=== PATIENT | female | born 2000 | race Caucasian/White ===

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

== ENCOUNTER 2023-11-11 21:51 | Emergency (ER) | payer BC ==
--- NOTE | 2023-11-12 00:12 | EDPHYS ---
Physician Documentation [facility] Name: Maggie Alcaraz Age: 23 yrs Sex: Female : 2000 Arrival Date: 11/11/2023 Time: 21:51 Bed 13 Private MD: ED Physician Ulysses Saucedo HPI: 11/10 22:54 This 23 yrs old Female presents to ER via Ambulatory with complaints of Leg Pain. kb 22:54 Patient is a 23-year-old female who presents for pain to medial left thigh that started kb 1 week ago. Denies injury or trauma. Ambulates with steady gait.. Historical: - Allergies: 22:30 No Known Allergies; pf1 - PMHx: 22:30 PCOS; pf1 - PSHx: 22:30 pilonidal cyst removal; pf1 - Immunization history:: Adult Immunizations up to date, Client reports receiving the 1st dose of the Covid vaccine, Last tetanus immunization: < 5 years ago Flu vaccine is not up to date. - Infectious Disease History:: Denies. - Social history:: Smoking status: Patient denies any tobacco usage or history of. Patient uses alcohol, occasionally. Patient/guardian denies using street drugs. ROS: 22:54 Constitutional: As per HPI kb Exam: 22:54 Constitutional: This is a well developed, well nourished patient who is awake, alert, kb and in no acute distress. Head/Face: Normocephalic, atraumatic. ENT: Moist Mucous membranes Cardiovascular: Regular rate Respiratory: Respirations even and unlabored. No increased work of breathing. Talking in full sentences Skin: Warm, dry with normal turgor. Normal color. MS/ Extremity: Pulses equal, no cyanosis. Neurovascular intact. Full, normal range of motion. Neuro: Awake and alert, GCS 15, oriented to person, place, time, and situation. Moves all extremities. Normal gait. Vital Signs: 22:23 BP 151 / 91; Pulse 91; Resp 15; Temp 98; Pulse Ox 100% on R/A; Weight 117.93 kg; Height pf1 5 ft. 4 in. ; Pain 4/10; 23:51 BP 117 / 82; Pulse 101; Resp 16; Pulse Ox 100% on R/A; me1 11/11 00:20 BP 111 / 62; Pulse 94; Resp 16; Temp 97.9; Pulse Ox 99% on R/A; Pain 09/10; pf1 11/10 22:23 Body Mass Index 44.63 (117.93 kg, 162.56 cm) pf1 11/10 22:23 Pain Scale: Adult pf1 11/11 00:20 Pain Scale: Adult pf1 MDM: 11/10 21:58 Patient medically screened. kb 22:54 Differential diagnosis: Strain, DVT, contusion. Data reviewed: vital signs, nurses kb notes. Counseling: I had a detailed discussion with the patient and/or guardian regarding the historical points, exam findings, and any diagnostic results supporting the discharge/admit diagnosis, radiology results, the need for outpatient follow up, a family practitioner, to return to the emergency department if symptoms worsen or persist or if there are any questions or concerns that arise at home. 11/11 00:11 Historians other than the Patient: Parent: mother. kb 11/10 22:04 Order name: US Extremity Venous Unilateral Ltd kb Administered Medications: No medications were administered Disposition: 02:06 Co-signature as Attending Physician, Ulysses Saucedo MD I reviewed the patient's care rt provided by the Advanced Practice Provider and agree with the diagnosis and treatment plan. Disposition Summary: 11/12/23 00:12 Discharge Ordered Notes: Location: Home kb Condition: Stable kb Diagnosis - Pain in left leg kb Followup: kb - With: Emergency Department - When: As needed - Reason: Worsening of condition Followup: kb - With: Private Physician - When: 2 - 3 days - Reason: Recheck today's complaints, Continuance of care, Re-evaluation by your physician Discharge Instructions: - Discharge Summary Sheet kb - Musculoskeletal Pain kb - Muscle Strain, [id number] kb Forms: - Medication Reconciliation Form kb - Antibiotic Education kb - Prescription Opioid Use kb - Patient Portal Instructions kb - Leadership Thank You Letter kb Prescriptions: - Diclofenac Sodium 75 mg Oral tablet, delayed release (enteric coated) - take 1 tablet ORAL route 2 times per day As needed; 30 tablet; Refills: 0, kb Product Selection Permitted - orphenadrine citrate 100 mg Oral Tablet Sustained Release - take 1 tablet ORAL route 2 times per day As needed; 20 tablet; Refills: 0, kb Product Selection Permitted Signatures: Dispatcher [employer] Christie Gandhi FNP-C FNP-Ckb Ulysses Saucedo MD MD rt Brenda Tanner, RN RN pf1
--- NOTE | 2023-11-12 00:12 | ER ---
Nurse's Notes [facility] Name: Maggie Alacraz Age: 23 yrs Sex: Female : 2000 Arrival Date: 11/11/2023 Time: 21:51 Bed 13 Private MD: Diagnosis: Pain in left leg Presentation: 11/10 22:23 Chief complaint: Patient states: left upper inner thigh pain of 4,onset 9 days. Patient pf1 denies any injury. Patient stated does stand at work all day. Coronavirus screen: Vaccine status: Patient reports receiving the 1st dose of the Covid vaccine. Client denies travel out of the [place] in the last 14 days. At this time, the client does not indicate any symptoms associated with coronavirus-19. Ebola Screen: Patient negative for fever greater than or equal to 101.5 degrees Fahrenheit, and additional compatible Ebola Virus Disease symptoms. Initial Sepsis Screen: Does the patient meet any 2 criteria? HR > 90 bpm. No. Patient's initial sepsis screen is negative. Does the patient have a suspected source of infection? No. Patient's initial sepsis screen is negative. Risk Assessment: Do you want to hurt yourself or someone else? Patient reports no desire to harm self or others. Onset of symptoms was November 09, 2023. 22:23 Method Of Arrival: Ambulatory pf1 22:23 Acuity: SALEEM 3 pf1 Triage Assessment: 22:31 General: Appears in no apparent distress. comfortable, well groomed, well developed, pf1 Behavior is calm, cooperative, appropriate for age, quiet. Pain: Complains of pain in left leg. Musculoskeletal: Reports pain in left leg Pain is 4 out of 10 on a pain scale. Historical: - Allergies: 22:30 No Known Allergies; pf1 - PMHx: 22:30 PCOS; pf1 - PSHx: 22:30 pilonidal cyst removal; pf1 - Immunization history:: Adult Immunizations up to date, Client reports receiving the 1st dose of the Covid vaccine, Last tetanus immunization: < 5 years ago Flu vaccine is not up to date. - Infectious Disease History:: Denies. - Social history:: Smoking status: Patient denies any tobacco usage or history of. Patient uses alcohol, occasionally. Patient/guardian denies using street drugs. Screenin:53 [facility] ED Fall Risk Assessment (Adult) History of falling in the last 3 months, me1 including since admission No falls in past 3 months (0 pts) Confusion or Disorientation No (0 pts) Intoxicated or Sedated No (0 pts) Impaired Gait No (0 pts) Mobility Assist Device Used No (0 pt) Altered Elimination No (0 pt) Score/Fall Risk Level 0 - 2 = Low Risk Maintained a safe environment, Provided non-skid footwear, Hourly rounding (assess needs \T\ fall precautionary measures) done. Abuse screen: Denies threats or abuse. Nutritional screening: No deficits noted. Tuberculosis screening: No symptoms or risk factors identified. Assessment: 23:51 General: Appears uncomfortable, well groomed, well developed, well nourished, Behavior me1 is calm, cooperative, appropriate for age, Reports left upper inner thigh pain of 4,onset 9 days. Patient denies any injury. Patient stated does stand at work all day. Pain: Complains of pain in left leg Pain does not radiate. Pain currently is 4 out of 10 on a pain scale. Quality of pain is described as tender, Pain began 9 days ago Is continuous. Neuro: Level of Consciousness is awake, alert, obeys commands, Oriented to person, place, time, situation, Appropriate for age. Cardiovascular: Capillary refill < 3 seconds Patient's skin is warm and dry. Respiratory: Airway is patent Respiratory effort is even, unlabored, Respiratory pattern is regular, symmetrical. GI: No signs and/or symptoms were reported involving the gastrointestinal system. : No signs and/or symptoms were reported regarding the genitourinary system. EENT: No signs and/or symptoms were reported regarding the EENT system. Derm: Skin is intact, is healthy with good turgor, Skin is pink, warm \T\ dry. Musculoskeletal: Reports pain in left leg. 11/11 00:21 Reassessment: Patient appears in no apparent distress at this time. Patient and/or pf1 family updated on plan of care and expected duration. Pain level reassessed. Patient is alert, oriented x 3, equal unlabored respirations, skin warm/dry/pink. Patient states feeling better. Patient states symptoms have improved. Vital Signs: 11/10 22:23 BP 151 / 91; Pulse 91; Resp 15; Temp 98; Pulse Ox 100% on R/A; Weight 117.93 kg; Height pf1 5 ft. 4 in. ; Pain /; 23:51 BP 117 / 82; Pulse 101; Resp 16; Pulse Ox 100% on R/A; me1 11/11 00:20 BP 111 / 62; Pulse 94; Resp 16; Temp 97.9; Pulse Ox 99% on R/A; Pain 3/10; pf1 11/10 22:23 Body Mass Index 44.63 (117.93 kg, 162.56 cm) pf1 11/10 22:23 Pain Scale: Adult pf1 11/11 00:20 Pain Scale: Adult pf1 ED Course: 11/10 21:54 Patient arrived in ED. im 21:58 Christie Cifuentes [facility]C [facility] kb 21:58 Ulysses Saucedo MD is Attending Physician. kb 22:30 Triage completed. pf1 22:37 US Extremity Venous Unilateral Ltd In Process Unspecified. EDKY 23:47 Pamela Chester, RN is Primary Nurse. me1 23:53 Patient has correct armband on for positive identification. Bed in low position. Call me1 light in reach. Side rails up X2. Provided Education on: POC. Verbalized understanding. . Client placed on continuous cardiac and pulse oximetry monitoring. NIBP monitoring applied. Pulse ox on. NIBP on. 23:53 Arm band placed on right wrist. pf1 23:53 No provider procedures requiring assistance completed. me1 11/11 00:21 Patient did not have IV access during this emergency room visit. pf1 Administered Medications: No medications were administered Medication: 00:22 VIS not applicable for this client. pf1 Outcome: 00:12 Discharge ordered by . kb 00:21 Discharged to home ambulatory, with family, pf1 00:21 Condition: improved 00:21 Discharge instructions given to patient, family, Instructed on discharge instructions, follow up and referral plans. Demonstrated understanding of instructions, follow-up care, medications, Prescriptions given X 2, 00:22 Patient left the ED. pf1 Signatures: Dispatcher [employer] EDKY Christie Cifuentes FNP-C FNP-Ckb Finley, Pamala, RN RN pf1 Rose Garcia Pamela Chester, RN RN nd1 Corrections: (The following items were deleted from the chart) 11/10 23:51 22:23 Chief complaint: Patient states: left upper inner thigh pain of 4,onset 9 days. me1 Patient denies any injury. Patient stated does stand at work all day. pf1
[2023-11-12 00:50] VITALS: BP 111/62; TEMP 97.9; O2SAT 99
--- NOTE | 2023-11-14 11:06 | RAD REPORT ---
EXAM DESCRIPTION: Extremity Venous Uni Ltd CLINICAL HISTORY: PAIN COMPARISON: None. TECHNIQUE: Grayscale, color Doppler, and spectral Doppler imaging of the left lower extremity venous system. FINDINGS: Normal compressibility, phasicity, and flow identified in the left common femoral, femoral , popliteal, and visualized calf veins. Normal flow in the visualized greater saphenous vein. No echo genic thrombus identified. IMPRESSION: No evidence of deep venous thrombosis in the left lower extremity. Electronically signed by: Christiana Menendez MD 11/11/2023 11:00 PM CDT Due to temporary technical issues with the PACS/Fluency reporting system, reports are being signed by the in house radiologist without review as a courtesy to ensure prompt reporting. The interpreting r adiologist is fully responsible for the content of the report.
== END 2023-11-12 00:22 | disposition home or self-care (01) ==
LOC: ER 21:51
DX: M79.652 Pain in left thigh (principal)
CPT/HCPCS: 93971; 99283